=== PATIENT | female | born 1965 | race Caucasian/White ===

== ENCOUNTER 2022-05-12 08:19 | Inpatient (IN) ==
[2022-05-12] MEDS ORDERED: Naloxone 0.4 MG/ML INJ IVP PRN (12:37)
[2022-05-12] MEDS ORDERED: Ondansetron 4 MG/2 ML VIAL IVP PRN (12:37)
[2022-05-12 13:51] LABS: Basophils % 0.5 %; Eosinophils # 0.2 K/mcL (0.0-0.6); Eosinophils % 2.2 %; Hematocrit 38.8 % (35.3-44.9); Hemoglobin 12.6 g/dL (11.5-15.4); Immature Granulocytes % 0.4 % (0-4); Lymphocytes # 2.4 K/mcL (0.6-4.6); Lymphocytes % 32.1 %; Mean Corpuscular HGB Conc 32.5 g/dL (31.6-35.5); Mean Corpuscular Hemoglobin 30.6 pg (28.0-33.3); Mean Corpuscular Volume 94.2 fL (83.0-100.0); Mean Platelet Volume 11.4 fL (9.4-12.4); Monocytes # 0.6 K/mcL (0.0-1.3); Monocytes % 7.8 %; Neutrophils # 4.2 K/mcL (1.6-8.9); Platelet Count 219 K/mcL (140-400); Red Blood Count 4.12 M/mcL (3.82-4.97); Red Cell Distribution Width 12.7 % (11.5-14.5); White Blood Count 7.4 K/mcL (4.3-11.1)
[2022-05-12 13:58] LABS: Heparin anti-factor XA UFH 0.29 IU/mL (0.30-0.70)
[2022-05-12] MEDS: Acetaminophen 325 MG TABLET PO PRN ×2 (14:18→20:03)
[2022-05-12 14:23] LABS: BUN/Creatinine Ratio 18 (6-26); Blood Urea Nitrogen 12 mg/dL (6-20); Calcium 8.8 mg/dL (8.6-10.3); Carbon Dioxide 27 mEq/L (23-29); Chloride 108 mEq/L (98-107); Glucose 139 mg/dL (70-105); Magnesium 1.8 mg/dL (1.6-2.6); Osmolality,Calculated 288 (280-300); Potassium 3.8 mEq/L (3.5-5.1); Sodium 138 mEq/L (136-145); Troponin I 3.06 ng/mL (< 0.04)
[2022-05-12] MEDS ORDERED: *HR* Heparin 5,000 UNIT/ML VIAL IVP ONE (14:27)
[2022-05-12] MEDS ORDERED: *HR* Heparin 5,000 UNIT/ML VIAL IVP PRN ×2 (14:27)
[2022-05-12] MEDS ORDERED: Nitroglycerin 0.4 MG TAB.SUBL SL PRN (14:28)
[2022-05-12] MEDS ORDERED: Heparin 25,000UNIT/250ML 1/2NS 25,000 UNIT/250 ML IV.SOLN IVC SCH (14:30)
[2022-05-12 14:36] LABS: INR 1.1; Prothrombin Time 12.7 Seconds (9.4-12.1)
[2022-05-12 14:39] LABS: Activated Partial Thrombo Time 50.9 Seconds (26.0-36.0)
[2022-05-12] MEDS ORDERED: *HR* FentaNYL (PF) 100 MCG/2 ML VIAL ONE ×2 (14:53→16:03)
[2022-05-12] MEDS ORDERED: Heparin 1,000 UNITS/500 mL 500 ML ONE ×2 (14:53→16:02)
[2022-05-12] MEDS ORDERED: *HR* Midazolam HCl 2 MG/2 ML VIAL ONE ×2 (14:53→15:27)
[2022-05-12] MEDS ORDERED: 0.9 % Sodium Chloride 2,000 ML ONE (14:53)
[2022-05-12] MEDS ORDERED: *HR* Heparin 10,000 UNIT/10 ML VIAL ONE ×2 (14:53→15:45)
[2022-05-12] MEDS ORDERED: Iopamidol - 370 200 ML INFUS..BTL ONE (14:54)
[2022-05-12] MEDS ORDERED: Nitroglycerin 1,000 MCG/5 ML VIAL IV ONE (14:54)
[2022-05-12] MEDS ORDERED: *HR* Ticagrelor 90 MG TABLET ONE (15:45)
[2022-05-12] MEDS ORDERED: Ondansetron 4 MG/2 ML VIAL ONE ×2 (15:56→16:50)
[2022-05-12] MEDS ORDERED: Pantoprazole 40 MG VIAL IVP ONE (17:30)
[2022-05-12] MEDS: *HR* Ticagrelor 90 MG TABLET PO SCH (20:03)
[2022-05-13 02:13] LABS: Basophils % 0.5 %; Eosinophils # 0.2 K/mcL (0.0-0.6); Eosinophils % 2.6 %; Hematocrit 37.3 % (35.3-44.9); Immature Granulocytes % 0.4 % (0-4); Lymphocytes # 1.6 K/mcL (0.6-4.6); Lymphocytes % 20.2 %; Mean Corpuscular HGB Conc 32.2 g/dL (31.6-35.5); Mean Corpuscular Hemoglobin 30.2 pg (28.0-33.3); Mean Corpuscular Volume 93.7 fL (83.0-100.0); Mean Platelet Volume 11.5 fL (9.4-12.4); Monocytes # 0.8 K/mcL (0.0-1.3); Monocytes % 9.8 %; Neutrophils # 5.1 K/mcL (1.6-8.9); Platelet Count 202 K/mcL (140-400); Red Blood Count 3.98 M/mcL (3.82-4.97); Red Cell Distribution Width 12.7 % (11.5-14.5); Segmented Neutrophils % 66.5 %; White Blood Count 7.7 K/mcL (4.3-11.1)
[2022-05-13 02:31] LABS: BUN/Creatinine Ratio 14 (6-26); Blood Urea Nitrogen 10 mg/dL (6-20); Calcium 8.7 mg/dL (8.6-10.3); Carbon Dioxide 23 mEq/L (23-29); Chloride 109 mEq/L (98-107); Glucose 208 mg/dL (70-105); Magnesium 1.9 mg/dL (1.6-2.6); Osmolality,Calculated 291 (280-300); Potassium 3.8 mEq/L (3.5-5.1); Sodium 138 mEq/L (136-145)
[2022-05-13 02:43] LABS: Thyroid Stimulating Hormone 3.146 mcIU/mL (0.340-5.600)
[2022-05-13 06:53] VITALS: BP 122/44; TEMP 97.6
[2022-05-13] MEDS: *HR* Ticagrelor 90 MG TABLET PO SCH (08:10)
[2022-05-13 08:29] VITALS: PULSE 60; O2SAT 97
[2022-05-13] MEDS ORDERED: Aspirin Enteric Coated 81 MG Tablet PO SCH (09:00)
[2022-05-13] MEDS: Acetaminophen 325 MG TABLET PO PRN (12:40)
== END 2022-05-13 13:41 | disposition home or self-care (01) | DRG 247 ==
LOC: 2NNU → SUATTDRO 17:04
PROVIDERS: ADMIT Pharmacist; ATTEND Internal Medicine

== ENCOUNTER 2022-05-27 | Observation (INO) ==
[2022-05-27 00:58] LABS: Basophils % 0.4 %; Eosinophils # 0.2 K/mcL (0.0-0.6); Eosinophils % 1.4 %; Hematocrit 49.1 % (35.3-44.9); Hemoglobin 16.2 g/dL (11.5-15.4); Immature Granulocytes % 0.5 % (0-4); Lymphocytes # 2.9 K/mcL (0.6-4.6); Lymphocytes % 26.9 %; Mean Corpuscular Hemoglobin 30.2 pg (28.0-33.3); Mean Corpuscular Volume 91.4 fL (83.0-100.0); Monocytes # 0.8 K/mcL (0.0-1.3); Monocytes % 7.8 %; Neutrophils # 6.7 K/mcL (1.6-8.9); Platelet Count 335 K/mcL (140-400); Red Blood Count 5.37 M/mcL (3.82-4.97); Red Cell Distribution Width 12.2 % (11.5-14.5); White Blood Count 10.6 K/mcL (4.3-11.1)
[2022-05-27 01:06] LABS: INR 1.2; Prothrombin Time 13.3 Seconds (9.4-12.1)
[2022-05-27 01:09] LABS: Activated Partial Thrombo Time 35.8 Seconds (26.0-36.0)
[2022-05-27 01:18] LABS: Calcium 10.5 mg/dL (8.6-10.3); Potassium 3.5 mEq/L (3.5-5.1)
[2022-05-27 01:35] LABS: Troponin I 0.04 ng/mL (< 0.04)
[2022-05-27] MEDS ORDERED: Aspirin 325 MG TABLET PO ONE (01:51)
[2022-05-27] MEDS ORDERED: Nitroglycerin 0.4 MG TAB.SUBL SL PRN (01:51)
[2022-05-27] MEDS ORDERED: Acetaminophen 325 MG TABLET PO PRN (04:48)
[2022-05-27] MEDS ORDERED: Ondansetron 4 MG/2 ML VIAL IVP PRN (04:48)
[2022-05-27] MEDS ORDERED: Naloxone 0.4 MG/ML INJ IVP PRN (04:48)
[2022-05-27 13:39] LABS: Bilirubin,Urine Negative (Negative); Blood,Urine Negative (Negative); Clarity,Urine Clear (Clear); Color,Urine Yellow (Yellow); Glucose,Urine (UA) 200 mg/dL (Normal); Ketones,Urine Negative (Negative); Leukocyte Esterase,Urine Negative (Negative); Mucus,Urine Few per lpf (None-Few); Nitrite,Urine Negative (Negative); Protein,Urine 30 mg/dL (Neg-Trace); RBC,Urine 0-3 per hpf (0-3); Specific Gravity,Urine > 1.030 (1.010-1.025); Squamous Epithelial Cell,Urine Moderate per hpf (None-Few); Urobilinogen,Urine Normal (Normal)
[2022-05-27 13:50] LABS: Amphetamine Screen,Urine Negative ng/mL (Cutoff=1000); Barbiturate Screen,Urine Negative ng/mL (Cutoff=200); Benzodiazepines Screen,Urine Negative ng/mL (Cutoff=200); Cannabinoid Screen,Urine Negative ng/mL (Cutoff = 50); Cocaine Screen,Urine Negative ng/mL (Cutoff= 300); Opiate Screen,Urine Negative ng/mL (Cutoff=300); Phencyclidine Screen,Urine Negative ng/mL (Cutoff=25)
[2022-05-27 15:48] LABS: Albumin/Globulin Ratio 1.2 (1.1-2.2); Bilirubin,Direct 0.2 mg/dL (0.0-0.2); Bilirubin,Indirect 0.7 mg/dL (0.0-1.0); Bilirubin,Total 0.9 mg/dL (0.3-1.0); Chol/HDL Ratio 5.5 (0-4.9); Estimated Average Glucose 169 mg/dl; Globulin 3.4 g/dL (2.4-3.5); Hemoglobin A1C 7.5 %; Magnesium 1.9 mg/dL (1.6-2.6); Thyroid Stimulating Hormone 4.474 mcIU/mL (0.340-5.600); Total Protein 7.4 g/dL (6.4-8.9)
[2022-05-28 01:50] LABS: INR 1.2; Prothrombin Time 13.3 Seconds (9.4-12.1)
[2022-05-28 02:00] LABS: Calcium 9.7 mg/dL (8.6-10.3); Potassium 3.6 mEq/L (3.5-5.1)
[2022-05-28 05:01] VITALS: O2SAT 96
[2022-05-28 06:24] LABS: Basophils # 0.1 K/mcL (0.0-0.2); Basophils % 0.6 %; Eosinophils # 0.3 K/mcL (0.0-0.6); Eosinophils % 3.6 %; Hematocrit 40.9 % (35.3-44.9); Hemoglobin 13.3 g/dL (11.5-15.4); Immature Granulocytes % 0.4 % (0-4); Lymphocytes # 2.7 K/mcL (0.6-4.6); Lymphocytes % 32.3 %; Mean Corpuscular HGB Conc 32.5 g/dL (31.6-35.5); Mean Corpuscular Hemoglobin 30.2 pg (28.0-33.3); Mean Platelet Volume 11.4 fL (9.4-12.4); Monocytes # 0.8 K/mcL (0.0-1.3); Monocytes % 9.8 %; Neutrophils # 4.4 K/mcL (1.6-8.9); Platelet Count 270 K/mcL (140-400); Red Cell Distribution Width 12.3 % (11.5-14.5); Segmented Neutrophils % 53.3 %; White Blood Count 8.3 K/mcL (4.3-11.1)
[2022-05-28 08:25] VITALS: BP 111/72; PULSE 62; TEMP 97.6
[2022-05-28] MEDS ORDERED: Aspirin Enteric Coated 81 MG Tablet PO SCH (09:00)
[2022-05-28] MEDS ORDERED: Furosemide 40 MG TABLET PO SCH (09:00)
== END 2022-05-28 12:28 | disposition home or self-care (01) ==
LOC: SUATTDRO → EMEROOARM → 3BNU → SUATTDRO 12:51 → 3BNU 14:08
PROVIDERS: ADMIT Student in an Organized Health Care Education/Training Program; ATTEND Pharmacist